=== PATIENT | female | born 1955 | race Asian ===

== ENCOUNTER 2019-10-17 09:34 | Outpatient (CLI) | payer BC ==
--- NOTE | 2019-10-23 13:27 | MMO ---
Left Breast MAMMO Unilat Diag DDI LT+AMMON. CLINICAL HISTORY: Patient is 63 years old and is seen for diagnostic exam. The patient has no family history of breast cancer. The patient has a history of right Mastectomy in December, - malignant. VIEWS: The views performed were: left craniocaudal with tomosynthesis; left mediolateral oblique with tomosynthesis; and left mediolateral with tomosynthesis. FILMS COMPARED: The present examination has been compared to a prior imaging study performed at [facility] on 09/20/2019. This study has been interpreted with the assistance of computer-aided detection. MAMMOGRAM FINDINGS: There are scattered fibroglandular densities. There is a lobular mass measuring 16 millimeters with circumscribed margins seen in the left breast at 1 o'clock. This corresponds to the known mass in this location described at prior outside ultrasound. IMPRESSION: MASS IN THE LEFT BREAST IS SUSPICIOUS. BIOPSY IS RECOMMENDED. THE RESULTS OF THIS EXAM WERE SENT TO THE PATIENT. ACR BI-RADS Category 4 - Suspicious abnormality - biopsy should be considered MAMMOGRAPHY NOTE: 1. A negative mammogram report should not delay a biopsy if a dominant of clinically suspicious mass is present. 2. Approximately 10% to 15% of breast cancers are not detected by mammography. 3. Adenosis and dense breasts may obscure an underlying neoplasm. Reported by: JEISON ROUSSEAU MD Electonically Signed: [id number]
== END 2019-10-17 09:35 | disposition home or self-care (01) ==
LOC: BICMAMMO 09:34
PROVIDERS: ATTEND Specialist
DX: N63.21 Unspecified lump in the left breast, upper outer quadrant (principal); Z90.11 Acquired absence of right breast and nipple
CPT/HCPCS: 77063; 77067; G0279

== ENCOUNTER 2019-10-20 14:18 | Outpatient (CLI) | payer BC ==
--- NOTE | 2019-10-23 13:29 | MMO ---
Left Breast MAMMO Unilat Diag DDI LT. CLINICAL HISTORY: Patient is 63 years old and is seen for breast biopsy. The patient has no family history of breast cancer. The patient has a history of left Ultrasound Guided Core Biopsy in October, - dr ferrell and right Mastectomy in December, - malignant. VIEWS: The views performed were: left craniocaudal and left mediolateral oblique. FILMS COMPARED: The present examination has been compared to prior imaging studies performed at [facility] on 10/17/2019, and at [facility] on 09/20/2019. This study has been interpreted with the assistance of computer-aided detection. MAMMOGRAM FINDINGS: There are scattered fibroglandular densities. Mass central left breast. IMPRESSION: FINDING IN THE LEFT BREAST IS CONFIRMED UTILIZING POST PROCEDURE MAMMOGRAM. THE RESULTS OF THIS EXAM WERE SENT TO THE PATIENT. MAMMOGRAPHY NOTE: 1. A negative mammogram report should not delay a biopsy if a dominant of clinically suspicious mass is present. 2. Approximately 10% to 15% of breast cancers are not detected by mammography. 3. Adenosis and dense breasts may obscure an underlying neoplasm. Reported by: FRANDY LARES MD Electonically Signed: [id number]
== END 2019-10-20 14:19 | disposition home or self-care (01) ==
LOC: BICMAMMO 14:18
PROVIDERS: ATTEND Specialist
DX: N63.20 Unspecified lump in the left breast, unspecified quadrant (principal); Z98.890 Other specified postprocedural states

== ENCOUNTER 2019-10-29 09:13 | Outpatient (CLI) | payer BC ==
[2019-10-29 10:09] LABS: #Basophils 0.1 thou/uL (0.0-0.2); #Eosinphils 0.1 thou/uL (0.0-0.7); #Lymphocytes 1.4 thou/uL (1.20-3.40); #Monocytes 0.4 thou/uL (0.11-0.59); #Neutrophils 3.8 thou/uL (1.40-6.50); %Basophils 1.7 % (0.0-1.0); %Eosinophils 2.4 % (0.0-10.0); %Lymphocytes 23.4 % (21.0-51.0); %Neutrophils 65.4 % (42.0-75.0); Hemoglobin 14.1 g/dL (12.0-16.0); Mean Corpuscular HGB CONC 33.4 g/dL (32.0-36.0); Mean Corpuscular Hemoglobin 30.5 pg (27.0-31.0); Mean Corpuscular Volume 91.4 fL (78.0-98.0); Mean Platelet Volume 7.6 fL (7.4-10.4); Platelet Count 223 thou/uL (130-400); RBC Distribution Width 11.1 % (11.5-14.5); Red Blood Cell (RBC) Count 4.63 mill/uL (4.20-5.40); White Blood Cell (WBC) Count 5.8 thou/uL (4.8-10.8)
[2019-10-29 10:30] LABS: Anion Gap 12 mmol/L (10-20); BUN (Urea Nitrogen) 10 mg/dL (9.8-20.1); Calc. Creatinine Clearance 0 mL/min (70-130); Calcium 9.7 mg/dL (7.8-10.44); Carbon Dioxide 27 mmol/L (23-31); Chloride 105 mmol/L (98-107); Estimated GFR-MDRD 76; Glucose 110 mg/dL (80-115); Sodium 140 mmol/L (136-145)
--- NOTE | 2019-10-30 15:54 | EKG ---
Test Reason : Blood Pressure : / mmHG Vent. Rate : 080 BPM Atrial Rate : 080 BPM P-R Int : 154 ms QRS Dur : 086 ms QT Int : 396 ms P-R-T Axes : 071 052 054 degrees QTc Int : 456 ms Normal sinus rhythm Normal ECG No previous ECGs available Confirmed by YAYA MORAN ([id number]) on 10/30/2019 3:53:46 PM Referred By: WALLY Confirmed By:YAYA MORAN
== END 2019-10-29 09:14 | disposition home or self-care (01) ==
LOC: LABBT 09:13
PROVIDERS: ATTEND Specialist
DX: Z01.818 Encounter for other preprocedural examination (principal); D24.2 Benign neoplasm of left breast
CPT/HCPCS: 80048; 85025; 93005; 93010

== ENCOUNTER 2019-11-14 11:25 | Day surgery (SDC) | payer BC ==
[2019-10-29 09:22] VITALS: BMI 21.0
[~2019-11-14 11:25] MED LIST: Dexamethasone 20 MG/5 ML VIAL ONE; Lidocaine 1% PF 5 ML VIAL ONE; Ondansetron PF 4 MG/2 ML Vial ONE; PROPOFOL 200 MG/20 ML VIAL ONE
[2019-11-14] MEDS ORDERED: Acetaminophen 500 MG TAB ONE (12:11)
[2019-11-14] MEDS ORDERED: Ketorolac Tromethamine 30 MG/ML VIAL ONE (12:11)
[2019-11-14] MEDS ORDERED: Fentanyl 100 MCG/2 ML VIAL ONE (14:22)
[2019-11-14] MEDS ORDERED: Midazolam HCl 2 mg/2 ml Vial ONE (14:22)
[2019-11-14] MEDS ORDERED: Bupivacaine 0.25% HCL 30 ML VIAL ONE (14:28)
[2019-11-14] MEDS ORDERED: Lidocaine 1% w/Epinephrine 1:100K 20 ML VIAL ONE (14:28)
--- NOTE | 2019-11-14 16:07 | MMO ---
Surgical specimen mammography HISTORY: Left breast cancer. FINDINGS: Mammographic evaluation of the surgical specimen obtained by Dr. Goncalves shows the localiza tion wire, localization clip, and microcalcifications to overlie the soft tissue. Findings were called to the operating room at 1541 hours. Code CR.
--- NOTE | 2019-11-17 11:58 | OP ---
DATE OF PROCEDURE: 11/14/2019 PREOPERATIVE DIAGNOSIS: Left breast tumor of uncertain malignant potential (following prior needle biopsy). POSTOPERATIVE DIAGNOSIS: Left breast tumor of uncertain malignant potential (following prior needle biopsy). PROCEDURE PERFORMED: Left breast ultrasound-guided needle localization, left breast needle localized lumpectomy. ANESTHESIA: General endotracheal. INDICATIONS: The patient is a 63-year-old female. She had presented with an abnormal left breast ultrasound which when biopsied revealed an abnormal, but not frankly cancerous lesion of the left breast. This is a well demarcated lesion that although did not show atypia, was difficult to characterize based on the needle biopsy. Complete excision was recommended. DESCRIPTION OF PROCEDURE: Informed consent was obtained. The patient was taken to the operating room, where general anesthesia was obtained with the patient in supine position. Left breast was prepped with ChloraPrep and draped in sterile fashion. Ultrasound was utilized to identify the lesion. This is approximately at the 1 o'clock radian of the left breast, fairly close to the areolar edge. The location within the breast was marked on the skin in a grid-type fashion. I then utilized a localizing needle which was passed using ultrasound guidance in a lateral to medial fashion through the mass. Additional local anesthetic was infiltrated. Transverse incision was created based on needle insertion site. Dissection was carried through skin and subcutaneous tissue. Flaps were raised superiorly, inferiorly and laterally. Dissection was carried behind the needle and under the needle to completely remove the lesion. Ultrasound was utilized during the operation to ensure margins and attempts were made to make sure complete excision with appropriate margins. It was resected intact with the wire. The specimen was then tagged with sutures for orientation and submitted to pathology. Mammography first demonstrated that the previous biopsy clip was removed intact with the specimen. Meticulous hemostasis was obtained within the wound. It was closed in layers with 3-0 and 4-0 Monocryl. Dermabond was placed externally. There were no complications. The patient tolerated the procedure well and was taken to recovery in stable condition. Job ID: [id number]
== END 2019-11-14 17:30 | disposition home or self-care (01) ==
LOC: SDC 11:25
PROVIDERS: ATTEND Specialist
PROC: 0HBU0ZZ Excision of Left Breast, Open Approach (ICD-10-PCS; principal; 2019-11-14)
DX: D48.62 Neoplasm of uncertain behavior of left breast (principal); I10 Essential (primary) hypertension; E11.9 Type 2 diabetes mellitus without complications; H40.9 Unspecified glaucoma; Z79.84 Long term (current) use of oral hypoglycemic drugs; Z79.899 Other long term (current) drug therapy; Z85.3 Personal history of malignant neoplasm of breast; Z90.11 Acquired absence of right breast and nipple
CPT/HCPCS: 76098; 88307; 88341; 88342; J0690; J1100; J1885; J2001; J2250; J2405; J2704; J3010; S0020

== ENCOUNTER 2020-11-03 14:47 | Outpatient (CLI) | payer BC ==
--- NOTE | 2020-11-03 16:10 | MMO ---
Left Breast MAMMO Unilat Diag DDI LT+AMMON. CLINICAL HISTORY: Patient is 64 years old and is seen for diagnostic exam. The patient has no family history of breast cancer. The patient has a history of lumpectomy procedure revealed invasive carcinoma. in the left breast in November,. The patient has a history of left Ultrasound Guided Core Biopsy in October, - dr ferrell and right Mastectomy in December, - malignant. VIEWS: The views performed were: left craniocaudal with tomosynthesis; left mediolateral oblique with tomosynthesis; and left mediolateral with tomosynthesis. FILMS COMPARED: The present examination has been compared to prior imaging studies performed at [facility] on 10/17/2019 and 10/20/2019, and at [facility] on 09/20/2019. This study has been interpreted with the assistance of computer-aided detection. MAMMOGRAM FINDINGS: There are scattered fibroglandular densities. There is a post-surgical scar seen in the left breast. There are no suspicious masses, suspicious calcifications, or new areas of architectural distortion. IMPRESSION: THERE IS NO MAMMOGRAPHIC EVIDENCE OF MALIGNANCY. A ROUTINE FOLLOW-UP MAMMOGRAM IN 1 YEAR IS RECOMMENDED. THE RESULTS OF THIS EXAM WERE SENT TO THE PATIENT. ACR BI-RADS Category 2 - Benign finding MAMMOGRAPHY NOTE: 1. A negative mammogram report should not delay a biopsy if a dominant of clinically suspicious mass is present. 2. Approximately 10% to 15% of breast cancers are not detected by mammography. 3. Adenosis and dense breasts may obscure an underlying neoplasm. Reported by: SARITHA HODGES MD Electonically Signed: [id number]
== END 2020-11-03 14:48 | disposition home or self-care (01) ==
LOC: BICMAMMO 14:47
PROVIDERS: ATTEND Radiology Radiation Oncology
DX: C50.912 Malignant neoplasm of unspecified site of left female breast (principal); C50.911 Malignant neoplasm of unspecified site of right female breast; Z92.3 Personal history of irradiation
CPT/HCPCS: G0279

== ENCOUNTER 2024-07-24 13:18 | Outpatient (CLI) | payer BC | END 2024-07-24 13:19 | disposition home or self-care (01) | LOC: BICMAMMO 13:18 | PROVIDERS: ATTEND Radiology Radiation Oncology | DX: Z12.31 Encounter for screening mammogram for malignant neoplasm of breast (principal); Z85.3 Personal history of malignant neoplasm of breast; Z90.12 Acquired absence of left breast and nipple; Z98.890 Other specified postprocedural states | CPT/HCPCS: 77063; 77067 ==

== ENCOUNTER 2025-07-29 10:32 | Outpatient (CLI) | payer BC | END 2025-07-29 10:33 | disposition home or self-care (01) | LOC: BICMAMMO 10:32 | PROVIDERS: ATTEND Emergency Medicine | DX: Z12.31 Encounter for screening mammogram for malignant neoplasm of breast (principal); Z85.3 Personal history of malignant neoplasm of breast; Z90.11 Acquired absence of right breast and nipple; Z98.890 Other specified postprocedural states | CPT/HCPCS: 77063; 77067 ==